=== PATIENT | female | born 1940 | race Caucasian/White ===

== ENCOUNTER 2023-11-09 16:12 | Inpatient (IN) ==
[2023-11-09 17:14] LABS: Appearance Urine Clear (Clear); Bacteria Urine Automated None Seen (None Seen); Bilirubin Urine Negative (Negative); Blood Urine Negative (Negative); Cast Urine Automated 0-2 /lpf (0-2); Color Urine Yellow; Epithelial Cell Urine Auto 0-2 /hpf (0-2); Glucose Urine UA Negative (Negative); Ketones Urine Negative (Negative); Leukocyte Esterase Urine Trace (Negative); Nitrite Urine Negative (Negative); Protein Urine Negative (Negative); RBC Urine Automated 0-2 /hpf (0-2); Specific Gravity Urine 1.014 (1.000-1.030); Urobilinogen Urine Negative (Negative); WBC Urine Automated 0-5 /hpf (0-5); pH Urine 6.5 (4.5-7.5)
[2023-11-09 17:31] LABS: Basophils # (auto) 0.04 K/uL (0.00-0.20); Basophils % (auto) 0.9 %; Eosinophils # (auto) 0.25 K/uL (0.00-0.50); Eosinophils % (auto) 5.8 %; Hematocrit (blood only) 34.9 % (37.0-47.0); Hemoglobin 11.4 g/dl (12.0-16.0); Immature Granulocytes # (auto) 0.01 K/uL (0.01-0.20); Immature Granulocytes % (auto) 0.2 %; Lymphocytes # (auto) 1.19 K/uL (1.20-3.40); Lymphocytes % (auto) 27.7 %; Mean Corpuscular Hemoglobin 28.6 pg (25.0-34.0); Mean Corpuscular Hgb Conc 32.7 g/dL (32.0-36.0); Mean Corpuscular Volume 87.7 fL (80.0-100.0); Mean Platelet Volume 9.5 fL (9.4-12.4); Monocytes # (auto) 0.39 K/uL (0.11-0.59); Monocytes % (auto) 9.1 %; Neutrophils # (auto) 2.42 K/uL (1.40-6.50); Neutrophils % (auto) 56.3 %; Platelet Count 117 K/uL (130-400); RDW Coefficient of Variation 13.5 % (11.5-14.5); RDW Standard Deviation 43.6 fL (36.4-46.3); Red Blood Count 3.98 M/uL (4.20-5.40)
[2023-11-09 17:32] LABS: Amphetamines+Metham, Urine Neg (Neg); Barbiturates, Urine Neg (Neg); Benzodiazepine, Urine Neg (Neg); Cocaine, Urine Neg (Neg); Fentanyl, Urine Neg (Neg); MDMA (Ecstacy), Urine Neg (Neg); Marijuana, Urine Neg (Neg); Methadone, Urine Neg (Neg); Opiate, Urine Neg (Neg); Phencyclidine, Urine Neg (Neg)
[2023-11-09 17:49] LABS: Alanine Aminotransferase 11 U/L (7-52); Albumin Globulin Ratio 1.6 (0.9-2); Albumin Level 3.9 gm/dl (3.4-5.0); Alkaline Phosphatase 98 U/L (34-104); Anion Gap 7 (3-11); Aspartate Aminotransferase 20 U/L (13-39); BUN Creatinine Ratio 21.7 (10-20); Bilirubin,Total 0.8 mg/dl (0.2-1.0); Blood Urea Nitrogen 15 mg/dl (6-23); Calcium 9.1 mg/dl (8.6-10.3); Carbon Dioxide 25 mmol/L (21-32); Chloride 110 mmol/L (98-107); Est GFR (African American) 93.3 ml/min; Est GFR (Non-African American) 80.5 ml/min; Globulin 2.5 gm/dl (2.5-4.0); Glucose 91 mg/dl (70-99(Fasting)); Potassium 3.8 mmol/L (3.5-5.1); Sodium 142 mmol/L (136-145); Total Protein 6.4 gm/dl (6.0-8.3)
[2023-11-09 17:55] LABS: Acetaminophen < 3 ug/ml (10-30); Salicylate < 3.0 mg/dl (3.0-30)
[2023-11-09 18:03] LABS: Thyroid Stimulating Hormone 0.492 uIu/ml (0.300-4.500)
--- NOTE | 2023-11-09 18:40 | CT Scan Report ---
CT head/brain wo con CLINICAL HISTORY: [place] Technique: Contiguous axial CT images of the head were acquired from the base of the skull to the delia josh without intravenous contrast administration. Images were viewed in brain, subdural and bone windo ws. Automated dose lowering techniques and/or adjustment according to patient size were utilized for this exam. Comparison: Comparison is made to CT head 11/07/2023 Findings: Areas of decreased attenuation are present in the periventricular and subcortical white matter bilate rally consistent with small vessel ischemic disease. Generalized cerebral atrophy with commensurate e nlargement of the ventricles, sulci, and cisterns is also present. There is no acute intracranial hem orrhage or evidence of acute territorial infarction. No shift of the midline structures, mass effect, or extra-axial abnormalities are shown. Atherosclerotic calcifications are present in the intracran ial segments of the internal carotid arteries. Imaged portions of the paranasal sinuses and mastoid air cells are clear. The orbits appear normal. There are no acute fractures of the calvaria or scalp swelling. Impression: No acute intracranial hemorrhage, no evidence of acute territorial infarction or other acute intracra nial disease process. ACT 112: Negative or not required by law. Electronically signed by: Trey Corona M.D. 11/09/2023 6:38 PM
[2023-11-09 20:02] LABS: Magnesium 1.9 mg/dl (1.7-2.4)
--- NOTE | 2023-11-09 20:22 | Emergency Department Note ---
History of Present Illness General Chief complaint: Mental Health Evaluation Stated complaint: MENTAL HEALTH ASSESMET w/HI/SI Time Seen by Provider: 11/09/23 17:00 Source: patient and family (Daughter at bedside) History of Present Illness Provider complaint: Mental health evaluation Maximum Pain Intensity: 0 83-year-old female with history of dementia and bipolar disorder presents emergency department for mental health evaluation. She was brought in by her daughter. Daughter reports that the patient recently moved in to live with her 2 months ago. She states that the patient lives at [facility] in memory care and that since being moved to memory care at [facility] she has been having increasing altered mental status, increased agitation and increased crying. She states that this has been off last 2 weeks. She states that the patient has been trying to escape the harmed house trying to run away into the [place]. She states that the patient cannot go back to [facility] and wants her admitted to a different facility and to have more anxiety medications. Reportedly the patient was threatening to kill herself and the staff at [facility] today when she became upset and was crying. Home Medications Medication Instructions Recorded Confirmed Type apixaban 5 mg tablet (Eliquis) 5 mg PO BID 11/09/23 11/09/23 History aspirin 81 mg capsule 81 mg PO DAILY 11/09/23 11/09/23 History atorvastatin 20 mg tablet 20 mg PO DAILY 11/09/23 11/09/23 History calcium carbonate 600 mg-vitamin 1 tab PO DAILY 11/09/23 11/09/23 History D3 5 mcg (200 unit) tablet (Calcium 600 + D(3)) docusate sodium 100 mg capsule 100 mg PO BID 11/09/23 11/09/23 History duloxetine 60 mg capsule,delayed 60 mg PO BID 11/09/23 11/09/23 History release escitalopram oxalate 10 mg tablet 10 mg PO DAILY 11/09/23 11/09/23 History ezetimibe 10 mg tablet 10 mg PO DAILY 11/09/23 11/09/23 History fluticasone 500 mcg-salmeterol 50 1 inh inhalation BID 11/09/23 11/09/23 History mcg/dose blistr powdr for inhalation levothyroxine 88 mcg tablet 88 mcg PO DAILY 11/09/23 11/09/23 History losartan 25 mg tablet (Cozaar) 25 mg PO DAILY 11/09/23 11/09/23 History montelukast 10 mg tablet 10 mg PO DAILY 11/09/23 11/09/23 History olanzapine 5 mg tablet 5 mg PO HS 11/09/23 11/09/23 History pantoprazole 40 mg tablet,delayed 40 mg PO DAILY 11/09/23 11/09/23 History release Allergies Allergy/AdvReac Type Severity Reaction Status Date / Time No Known Allergies Allergy Verified 10/27/23 01:41 Past Med/Surg History Problem List (Updated 11/09/23 @ 20:41 by Adan Macias MD) Dementia (Acute) Dehydration (Acute) Confusion (Acute) Acute UTI (Acute) Medical History No pertinent family history Bipolar disorder HLD (hyperlipidemia) Dementia Surgical History No pertinent past surgical history Social History Smoking Status: Former smoker Preferred Language: Romanian Feels Safe at Home: Yes Physical Exam Vital Signs Vital Signs - 24 hr 11/09/23 16:35 Temperature 36.9 C Temperature Source Oral Pulse Rate 102 H Respiratory Rate 16 Respiratory Effort / Characteristics Non-Labored Blood Pressure 139/69 Blood Pressure Mean 92 Pulse Oximetry 95 Oxygen Delivery Method Room Air Sepsis Recent Fever Within 48 Hours No Sepsis New/Unexplained Change in Mental Status No Sepsis Action Taken by Nursing No Action Required Physical Exam HENT: Exam performed. - Head: Normocephalic and atraumatic. EYES: Conjunctivae and EOM are normal. Right eye exhibits no discharge. Left eye exhibits no discharge. No scleral icterus. NECK: Normal range of motion. Neck supple. No JVD present. CV: Normal rate, regular rhythm, normal heart sounds and intact distal pulses. There is no peripheral edema. Palpable radial pulses bue. PULM/CHEST: Effort normal and breath sounds normal. No respiratory distress. No stridor. no wheezes. no rales. ABD: The abdomen is soft. There is no tenderness. NEURO: Motor and sensation grossly intact. SKIN: Skin is warm and dry. He is not diaphoretic. PSYCH: Patient is confused. Course Course 1700: The patient was evaluated in room A6. A complete history and physical exam was performed 1919: Patient medically cleared. Patient daughter wants the patient placed in different facility. [facility] Medical Decision Making Medical Records Attestation: I reviewed the patient's medical records. External medical records reviewed. This is the patient's third visit in the last 2 weeks for similar symptoms. Last visit was 2 days ago. At that time the patient had a negative workup including negative blood work CT head CT angio head and neck. Laboratory Data Attestation: I reviewed the patient's lab results. 11/09/23 17:10 11/09/23 17:10 Lab Results 11/09/23 11/09/23 11/09/23 Range/Units 16:35 17:10 17:35 WBC 4.30 L (4.8-10.8) K/ul RBC 3.98 L (4.20-5.40) M/uL Hgb 11.4 L (12.0-16.0) g/dl Hct 34.9 L (37.0-47.0) % MCV 87.7 (80.0-100.0) fL MCH 28.6 (25.0-34.0) pg MCHC 32.7 (32.0-36.0) g/dL RDW Std Deviation 43.6 (36.4-46.3) fL RDW Coeff of Alem 13.5 (11.5-14.5) % Plt Count 117 L (130-400) K/uL MPV 9.5 (9.4-12.4) fL Immature Gran % (Auto) 0.2 % Neut % (Auto) 56.3 % Lymph % (Auto) 27.7 % Kane % (Auto) 9.1 % Eos % (Auto) 5.8 % Baso % (Auto) 0.9 % Neut # (Auto) 2.42 (1.40-6.50) K/uL Lymph # (Auto) 1.19 L (1.20-3.40) K/uL Kane # (Auto) 0.39 (0.11-0.59) K/uL Eos # (Auto) 0.25 (0.00-0.50) K/uL Baso # (Auto) 0.04 (0.00-0.20) K/uL Immature Gran # (Auto) 0.01 (0.01-0.20) K/uL Sodium 142 (136-145) mmol/L Potassium 3.8 (3.5-5.1) mmol/L Chloride 110 H (98-107) mmol/L Carbon Dioxide 25 (21-32) mmol/L Anion Gap 7 (3-11) BUN 15 (6-23) mg/dl Creatinine 0.69 (0.6-1.2) mg/dl Est Cr Clr Drug Dosing Not Reportable Est GFR ( Amer) 93.3 ml/min Est GFR (Non-Af Amer) 80.5 ml/min BUN/Creatinine Ratio 21.7 H (10-20) Glucose 91 (70-99(Fasting)) mg/dl Calcium 9.1 (8.6-10.3) mg/dl Magnesium 1.9 (1.7-2.4) mg/dl Total Bilirubin 0.8 (0.2-1.0) mg/dl AST 20 (13-39) U/L ALT 11 (7-52) U/L Alkaline Phosphatase 98 (34-104) U/L Total Protein 6.4 (6.0-8.3) gm/dl Albumin 3.9 (3.4-5.0) gm/dl Globulin 2.5 (2.5-4.0) gm/dl Albumin/Globulin Ratio 1.6 (0.9-2) TSH 0.492 (0.300-4.500) uIu/ml Urine Color Yellow Urine Appearance Clear (Clear) Urine pH 6.5 (4.5-7.5) Ur Specific [place] 1.014 (1.000-1.030) Urine Protein Negative (Negative) Urine Glucose (UA) Negative (Negative) Urine Ketones Negative (Negative) Urine Blood Negative (Negative) Urine Nitrite Negative (Negative) Urine Bilirubin Negative (Negative) Urine Urobilinogen Negative (Negative) Ur Leukocyte Esterase Trace H (Negative) Urine WBC (Auto) 0-5 (0-5) /hpf Urine RBC (Auto) 0-2 (0-2) /hpf U Hyaline Cast (Auto) 0-2 (0-2) /lpf U Epithel Cells (Auto) 0-2 (0-2) /hpf Urine Bacteria (Auto) None Seen (None Seen) Salicylates < 3.0 L (3.0-30) mg/dl Urine Opiates Screen Neg (Neg) Ur Methadone, Qual Neg (Neg) Urine Fentanyl Screen Neg (Neg) Acetaminophen < 3 L (10-30) ug/ml Urine Barbiturates Neg (Neg) Ur Phencyclidine (PCP) Neg (Neg) U Amphetamin/Meth Scrn Neg (Neg) MDMA (Ecstasy) Screen Neg (Neg) U Benzodiazepines Scrn Neg (Neg) Ur Cocaine Metabolite Neg (Neg) U Marijuana (THC) Screen Neg (Neg) Ethyl Alcohol mg/dL < 10.0 (<10.0) mg/dl SARS-CoV-2, RNA, NAAT NEGATIVE (NEGATIVE) Imaging Data Radiologist's Impression: Head CT 11/09/23 17:26 CT head/brain wo con CLINICAL HISTORY: [employer] Technique: Contiguous axial CT images of the head were acquired from the base of the skull to the vertex without intravenous contrast administration. Images were viewed in brain, subdural and bone windows. Automated dose lowering techniques and/or adjustment according to patient size were utilized for this exam. Comparison: Comparison is made to CT head 11/07/2023 Findings: Areas of decreased attenuation are present in the periventricular and subcortical white matter bilaterally consistent with small vessel ischemic disease. Generalized cerebral atrophy with commensurate enlargement of the ventricles, sulci, and cisterns is also present. There is no acute intracranial hemorrhage or evidence of acute territorial infarction. No shift of the midline structures, mass effect, or extra-axial abnormalities are shown. Atherosclerotic calcifications are present in the intracranial segments of the internal carotid arteries. Imaged portions of the paranasal sinuses and mastoid air cells are clear. The orbits appear normal. There are no acute fractures of the calvaria or scalp swelling. Impression: No acute intracranial hemorrhage, no evidence of acute territorial infarction or other acute intracranial disease process. ACT 112: Negative or not required by law. Electronically signed by: Trey Corona M.D. 11/09/2023 6:38 PM [facility] Narrative 1700: The patient was evaluated in room A6. A complete history and physical exam was performed 1920: Patient medically cleared. Patient daughter wants the patient placed in different facility. Patient will be admitted to the [facility] team for placement at different facility. Impression & Plan Dementia Discharge Plan Visit Data Chief Complaint: Mental Health Evaluation Stated Complaint: MENTAL HEALTH ASSESMET w/HI/SI ED Provider: Adan Macias Discharge Problem: Dementia Patient Disposition: Being Evaluated by Hospitalist Forms Stand Alone Forms: [facility], Suicide Prevention Resources Prescriptions Prescriptions: No Action atorvastatin 20 mg Tablet 20 mg PO DAILY olanzapine 5 mg Tablet 5 mg PO HS calcium carbonate-vitamin D3 [Calcium 600 + D(3)] 600 mg-5 mcg (200 unit) Tablet 1 tab PO DAILY levothyroxine 88 mcg Tablet 88 mcg PO DAILY pantoprazole 40 mg Tablet,Delayed Release (Dr/Ec) 40 mg PO DAILY fluticasone propion-salmeterol 500-50 mcg/dose Blister With Device 1 inh INHALATION BID Rx Instructions: 799 & 1999 losartan [Cozaar] 25 mg Tablet 25 mg PO DAILY docusate sodium 100 mg Capsule 100 mg PO BID montelukast 10 mg Tablet 10 mg PO DAILY escitalopram oxalate 10 mg Tablet 10 mg PO DAILY ezetimibe 10 mg Tablet 10 mg PO DAILY duloxetine 60 mg Capsule,Delayed Release(Dr/Ec) 60 mg PO BID Rx Instructions: 799 & 1999 Eliquis 5 mg Tablet 5 mg PO BID Rx Instructions: 799 & 1999 aspirin 81 mg Capsule 81 mg PO DAILY Referrals Referrals: [facility] [place] [Primary Care Provider] - Discharge Problem: Dementia Qualifiers: Dementia type: unspecified type Dementia severity: unspecified severity D ementia behavioral or psychological symptom: with agitation Qualified Code(s): F 03.911 - Unspecified dementia, unspecified severity, with agitation
--- NOTE | 2023-11-09 21:03 | History & Physical Report ---
Date of Service November 09, 2023 Assessment & Plan (1) Agitation: Plan: Episodic agitation History dementia Patient currently calm and mentating well. SSS status post PPM on Eliquis CAD hypertension, slightly elevated hyperlipidemia on statin Rx bronchial asthma, patient without breathing complaints right now hypothyroidism, euthyroid as of today's TSH chronic anemia, hemoglobin at baseline bipolar disorder as per family, patient daughter not sure if current mood medications adequate treatment for patient's bipolar disorder which she feels is contributing to mother's erratic behavior past tobacco abuse OBS F Psych consult as per daughter's request Re: Bipolar disorder Case management Re: placement if [facility] wont be able to accept patient due to erratic behavior DVT prophylaxis. Eliquis DNR as per patient previous wishes. Patient daughter requesting updates from providers. Ms. Emma Mims, contact #[phone]. Text document was generated using Vingle voice recognition software. It may contain grammatical or spelling errors. Kindly contact undersigned for clarification of any documentation item in question. History of Present Illness Chief Complaint: Combative behavior Primary Care Provider: [facility] History obtained from patient, family, and records. Patient is a fair historian. Medical history significant for SSS status post PPM on Eliquis, CAD, hypertension, hyperlipidemia, bronchial asthma, GERD, hypothyroidism, chronic anemia (baseline hemoglobin of 11), bipolar disorder as per family, dementia, past tobacco abuse. Patient moved to [facility] assisted living [facility] from [place] 2 months ago to be close to patient's daughter who lives locally. Son from [place] could not care for patient anymore. Patient seen at [facility] 2 weeks ago for confusion and agitation. Keflex course prescribed for UTI. Patient had confusion and erratic, combative behavior towards staff over the weekend. Tried to escape from facility as per daughter. Assisted living facility staff recommended keeping patient at [facility] memory care unit over the weekend for better supervision. Patient became worse at memory care unit as per daughter. Increased agitation and combativeness. Patient brought to ER for evaluation as per daughter request. Patient has previous bipolar disorder diagnosis and daughter worried that behavior may be coming from untreated illness. 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 Allergies Allergy/AdvReac Type Severity Reaction Status Date / Time No Known Allergies Allergy Verified 10/27/23 01:41 Home Medications Medication Instructions Recorded Confirmed Type apixaban 5 mg tablet (Eliquis) 5 mg PO BID 11/09/23 11/09/23 History aspirin 81 mg capsule 81 mg PO DAILY 11/09/23 11/09/23 History atorvastatin 20 mg tablet 20 mg PO DAILY 11/09/23 11/09/23 History calcium carbonate 600 mg-vitamin 1 tab PO DAILY 11/09/23 11/09/23 History D3 5 mcg (200 unit) tablet (Calcium 600 + D(3)) docusate sodium 100 mg capsule 100 mg PO BID 11/09/23 11/09/23 History duloxetine 60 mg capsule,delayed 60 mg PO BID 11/09/23 11/09/23 History release escitalopram oxalate 10 mg tablet 10 mg PO DAILY 11/09/23 11/09/23 History ezetimibe 10 mg tablet 10 mg PO DAILY 11/09/23 11/09/23 History fluticasone 500 mcg-salmeterol 50 1 inh inhalation BID 11/09/23 11/09/23 History mcg/dose blistr powdr for inhalation levothyroxine 88 mcg tablet 88 mcg PO DAILY 11/09/23 11/09/23 History losartan 25 mg tablet (Cozaar) 25 mg PO DAILY 11/09/23 11/09/23 History montelukast 10 mg tablet 10 mg PO DAILY 11/09/23 11/09/23 History olanzapine 5 mg tablet 5 mg PO HS 11/09/23 11/09/23 History pantoprazole 40 mg tablet,delayed 40 mg PO DAILY 11/09/23 11/09/23 History release Past Med/Surg History Problem List (Updated 11/10/23 @ 07:39 by Jose Juan Sandoval MD) Agitation Dementia (Acute) Dehydration (Acute) Confusion (Acute) Acute UTI (Acute) Medical History No pertinent family history Bipolar disorder HLD (hyperlipidemia) Dementia Surgical History No pertinent past surgical history Social History Smoking Status: Never smoker Hx Alcohol Use: No Hx Substance Use: No Preferred Language: Upper Sorbian Communication Ability: Effective Manager Content Required: No Beliefs That Will Affect Care: None Current Living Situation Comment: At [facility], does not want to return there. Other Information That Helps Us Care for You: No Feels Safe at Home: Yes Safety Concerns: Feels Safe At This Time Assistive Devices: None Review of Systems Review of Systems: As per HPI, all other systems reviewed and negative Physical Exam Physical Exam: GENERAL: Comfortable, obese, pleasant, no respiratory distress SKIN: Normal color, warm HEENT: [place] palpebral conjunctivae, no ptosis, dry buccal mucosa NECK : Supple, no tenderness CHEST : CTA, no tenderness HEART : Irregular, no obvious murmurs ABDOMEN: Some distention, nontender EXTREMITIES : No LE swelling/tenderness, no other conspicuous deformities noted NEUROLOGIC : Coherent, no facial asymmetry, no other gross focality Results & Data Results & Data Vital Signs (Past 12 Hours) Vital Signs Temp Pulse Resp BP Pulse Ox O2 Del Method 11/09/23 16:35 36.9 C 102 H 16 139/69 95 Room Air Laboratory Results Laboratory Results WBC 4.30 K/ul (4.8-10.8) L 11/09/23 17:10 RBC 3.98 M/uL (4.20-5.40) L 11/09/23 17:10 Hgb 11.4 g/dl (12.0-16.0) L 11/09/23 17:10 Hct 34.9 % (37.0-47.0) L 11/09/23 17:10 MCV 87.7 fL (80.0-100.0) 11/09/23 17:10 MCH 28.6 pg (25.0-34.0) 11/09/23 17:10 MCHC 32.7 g/dL (32.0-36.0) 11/09/23 17:10 RDW Std Deviation 43.6 fL (36.4-46.3) 11/09/23 17:10 RDW Coeff of Alem 13.5 % (11.5-14.5) 11/09/23 17:10 Plt Count 117 K/uL (130-400) L 11/09/23 17:10 MPV 9.5 fL (9.4-12.4) 11/09/23 17:10 Immature Gran % (Auto) 0.2 % 11/09/23 17:10 Neut % (Auto) 56.3 % 11/09/23 17:10 Lymph % (Auto) 27.7 % 11/09/23 17:10 Alfalfa % (Auto) 9.1 % 11/09/23 17:10 Eos % (Auto) 5.8 % 11/09/23 17:10 Baso % (Auto) 0.9 % 11/09/23 17:10 Neut # (Auto) 2.42 K/uL (1.40-6.50) 11/09/23 17:10 Lymph # (Auto) 1.19 K/uL (1.20-3.40) L 11/09/23 17:10 Alfalfa # (Auto) 0.39 K/uL (0.11-0.59) 11/09/23 17:10 Eos # (Auto) 0.25 K/uL (0.00-0.50) 11/09/23 17:10 Baso # (Auto) 0.04 K/uL (0.00-0.20) 11/09/23 17:10 Immature Gran # (Auto) 0.01 K/uL (0.01-0.20) 11/09/23 17:10 Sodium 142 mmol/L (136-145) 11/09/23 17:10 Potassium 3.8 mmol/L (3.5-5.1) 11/09/23 17:10 Chloride 110 mmol/L (98-107) H 11/09/23 17:10 Carbon Dioxide 25 mmol/L (21-32) 11/09/23 17:10 Anion Gap 7 (3-11) 11/09/23 17:10 BUN 15 mg/dl (6-23) 11/09/23 17:10 Creatinine 0.69 mg/dl (0.6-1.2) 11/09/23 17:10 Est Cr Clr Drug Dosing Not Reportable 11/09/23 17:10 Est GFR ( Amer) 93.3 ml/min 11/09/23 17:10 Est GFR (Non-Af Amer) 80.5 ml/min 11/09/23 17:10 BUN/Creatinine Ratio 21.7 (10-20) H 11/09/23 17:10 Glucose 91 mg/dl (70-99(Fasting)) 11/09/23 17:10 Calcium 9.1 mg/dl (8.6-10.3) 11/09/23 17:10 Magnesium 1.9 mg/dl (1.7-2.4) 11/09/23 17:10 Total Bilirubin 0.8 mg/dl (0.2-1.0) 11/09/23 17:10 AST 20 U/L (13-39) 11/09/23 17:10 ALT 11 U/L (7-52) 11/09/23 17:10 Alkaline Phosphatase 98 U/L (34-104) 11/09/23 17:10 Total Protein 6.4 gm/dl (6.0-8.3) 11/09/23 17:10 Albumin 3.9 gm/dl (3.4-5.0) 11/09/23 17:10 Globulin 2.5 gm/dl (2.5-4.0) 11/09/23 17:10 Albumin/Globulin Ratio 1.6 (0.9-2) 11/09/23 17:10 TSH 0.492 uIu/ml (0.300-4.500) 11/09/23 17:10 Urine Color Yellow 11/09/23 16:35 Urine Appearance Clear (Clear) 11/09/23 16:35 Urine pH 6.5 (4.5-7.5) 11/09/23 16:35 Ur Specific [place] 1.014 (1.000-1.030) 11/09/23 16:35 Urine Protein Negative (Negative) 11/09/23 16:35 Urine Glucose (UA) Negative (Negative) 11/09/23 16:35 Urine Ketones Negative (Negative) 11/09/23 16:35 Urine Blood Negative (Negative) 11/09/23 16:35 Urine Nitrite Negative (Negative) 11/09/23 16:35 Urine Bilirubin Negative (Negative) 11/09/23 16:35 Urine Urobilinogen Negative (Negative) 11/09/23 16:35 Ur Leukocyte Esterase Trace (Negative) H 11/09/23 16:35 Urine WBC (Auto) 0-5 /hpf (0-5) 11/09/23 16:35 Urine RBC (Auto) 0-2 /hpf (0-2) 11/09/23 16:35 U Hyaline Cast (Auto) 0-2 /lpf (0-2) 11/09/23 16:35 U Epithel Cells (Auto) 0-2 /hpf (0-2) 11/09/23 16:35 Urine Bacteria (Auto) None Seen (None Seen) 11/09/23 16:35 Salicylates < 3.0 mg/dl (3.0-30) L 11/09/23 17:10 Urine Opiates Screen Neg (Neg) 11/09/23 16:35 Ur Methadone, Qual Neg (Neg) 11/09/23 16:35 Urine Fentanyl Screen Neg (Neg) 11/09/23 16:35 Acetaminophen < 3 ug/ml (10-30) L 11/09/23 17:10 Urine Barbiturates Neg (Neg) 11/09/23 16:35 Ur Phencyclidine (PCP) Neg (Neg) 11/09/23 16:35 U Amphetamin/Meth Scrn Neg (Neg) 11/09/23 16:35 MDMA (Ecstasy) Screen Neg (Neg) 11/09/23 16:35 U Benzodiazepines Scrn Neg (Neg) 11/09/23 16:35 Ur Cocaine Metabolite Neg (Neg) 11/09/23 16:35 U Marijuana (THC) Screen Neg (Neg) 11/09/23 16:35 Ethyl Alcohol mg/dL < 10.0 mg/dl (<10.0) 11/09/23 17:10 SARS-CoV-2, RNA, NAAT NEGATIVE (NEGATIVE) 11/09/23 17:[address] 11/09/23 17:26 CT head/brain wo con CLINICAL HISTORY: [facility] Technique: Contiguous axial CT images of the head were acquired from the base of the skull to the vertex without intravenous contrast administration. Images were viewed in brain, subdural and bone windows. Automated dose lowering techniques and/or adjustment according to patient size were utilized for this exam. Comparison: Comparison is made to CT head 11/07/2023 Findings: Areas of decreased attenuation are present in the periventricular and subcortical white matter bilaterally consistent with small vessel ischemic disease. Generalized cerebral atrophy with commensurate enlargement of the ventricles, sulci, and cisterns is also present. There is no acute intracranial hemorrhage or evidence of acute territorial infarction. No shift of the midline structures, mass effect, or extra-axial abnormalities are shown. Atherosclerotic calcifications are present in the intracranial segments of the internal carotid arteries. Imaged portions of the paranasal sinuses and mastoid air cells are clear. The orbits appear normal. There are no acute fractures of the calvaria or scalp swelling. Impression: No acute intracranial hemorrhage, no evidence of acute territorial infarction or other acute intracranial disease process. ACT 112: Negative or not required by law. Electronically signed by: Trey Corona M.D. 11/09/2023 6:38 PM Diagnostic Findings Chest x-ray as per my interpretation minimal congestion
[2023-11-09] MEDS ORDERED: OLANZapine 10 MG/2.1 ML SDV IM PRN (21:09)
[2023-11-09] MEDS: MAGNESIUM SULFATE / D5W 1 GM/100 ML BAG IV ONE (22:48)
[2023-11-09] MEDS: POTASSIUM CHLORIDE CRTAB 20 MEQ TABCR PO STA (23:56)
[2023-11-09] MEDS: MAGNESIUM OXIDE 400 MG TAB PO STA (23:56)
[2023-11-10] MEDS: APIXABAN 5 MG TABLET PO SCH (00:55)
[2023-11-10] MEDS: OLANZapine 5 MG TABLET PO SCH (00:56)
[2023-11-10] MEDS: DULoxetine HCL 60 MG CAP PO SCH (00:56)
[2023-11-10] MEDS: Patient's HEIGHT &/or WEIGHT Needed STA (00:56)
[2023-11-10] MEDS: DOCUSATE SODIUM 100 MG CAP PO SCH (00:58)
[2023-11-10] MEDS: LEVOTHYROXINE SODIUM 88 MCG TABLET PO SCH (05:50)
--- NOTE | 2023-11-10 07:51 | XRay Report ---
XR chest 1V portable CLINICAL HISTORY: ffup, congestion TECHNIQUE: Single frontal radiograph of the chest was obtained. Comparison: Comparison is made to chest radiographs from 11/07/2023 FINDINGS: An implanted pacemaker is seen. Median sternotomy wires are seen. Cardiomegaly is noted. The aortic a rch is calcified. Pulmonary vascular congestion is less conspicuous than in the prior exam. No eviden ce of pleural effusion or pneumothorax. IMPRESSION: Interval mild improvement in pulmonary vascular congestion. ACT 112: Negative or not required by law. Electronically signed by: Trey Corona M.D. 11/10/2023 7:50 AM
[2023-11-10] MEDS: LOSARTAN POTASSIUM 25 MG TAB PO SCH (08:42)
[2023-11-10] MEDS: EZETIMIBE 10 MG TAB PO SCH (08:42)
[2023-11-10] MEDS: PANTOprazole 40 MG TAB PO SCH (08:43)
[2023-11-10] MEDS: ATORVASTATIN 20 MG TAB PO SCH (08:43)
[2023-11-10] MEDS: MONTELUKAST SODIUM 10 MG TABLET PO SCH (08:43)
[2023-11-10] MEDS: ASPIRIN 81 MG ECTAB PO SCH (08:43)
[2023-11-10] MEDS: ESCITALOPRAM OXALATE 10 MG TAB PO SCH (08:43)
[2023-11-10] MEDS: FLUTICASONE/VILANTEROL 200/25MCG 14 PUFFS/INHALER INH SCH (08:44)
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
[2023-11-10] MEDS ORDERED: hydrOXYzine HCl 10 MG TAB PO PRN (15:54)
[2023-11-10] MEDS ORDERED: OLANZAPINE 2.5 MG TAB PO PRN (15:54)
--- NOTE | 2023-11-10 17:13 | Hospitalist Progress Note ---
Date of Service November 10, 2023 Assessment & Plan (1) Agitation: Plan: Episodic agitation History dementia Patient currently calm and mentating well. Psychiatry service consulted Recommendations noted DC citalopram Trial of mirtazapine at bedtime Trial of as needed olanzapine and hydroxyzine bipolar disorder as per family, patient daughter not sure if current mood medications adequate treatment for patient's bipolar disorder which she feels is contributing to mother's erratic behavior Psychiatrist requested to give daughter a call as she had specific questions about medication adjustments PT OT evaluation SSS status post PPM on Eliquis CAD hypertension, slightly elevated -- Continue to monitor hyperlipidemia on statin Rx bronchial asthma -- Bladder exacerbation hypothyroidism -- euthyroid as of today's TSH chronic anemia, hemoglobin at baseline past tobacco abuse GMF Psych consult as per daughter's request Re: Bipolar disorder Case management Re: placement if [facility] wont be able to accept patient due to erratic behavior DVT prophylaxis. Eliquis DNR as per patient previous wishes. Admission and Anticipated Discharge Date Admission Date: November 09, 2023 Subjective Follow-up for behavioral changes, history of mood disorder, etc. Seen with patient's daughter Emma at the bedside Patient is awake and alert, oriented x 3, answering questions appropriately In good spirits, calm and cooperative Remembers she was becoming agitated at the memory care unit and that is why she was transferred over here Daughter clarifies that she [place] but had to stay for 1 night at the memory care unit because of some behavioral changes observed, but ultimate goal is for her to return to the personal-jail section of [place] Patient states she feels fine overall Denies headache, chest pain, cough, abdominal pain, problems with urination or bowel movement No other new symptom Review of Systems Review of Systems: all noted and negative except for above Physical Exam Physical Exam: General- oriented x 3, not in distress, speaks in sentences with no effort or ac cessory muscle use Eyes- anicteric Neck- no JVD Lungs- clear breath sounds bilaterally, no rales/wheezes Heart- normal rate, regular rhythm; no murmurs Abdomen- normal bowel sounds, nondistended, soft, nontender Extremities- no pretibial edema, no calf tenderness Neuro- alert, oriented x 3; no gross focal neurologic deficits Skin- warm & dry Results & Data Results & Data Vital Signs (Past 12 Hours) Vital Signs Temp Pulse Resp BP Pulse Ox O2 Del Method 11/10/23 15:25 36.6 C 81 16 148/79 H 97 Room Air 11/10/23 07:26 36.7 C 84 16 158/93 H 99 Room Air all noted and reviewed including below
[2023-11-10] MEDS: ACETAMINOPHEN 325 MG TAB PO PRN (18:03)
[2023-11-10] MEDS: MIRTAZAPINE TAB 15 MG TAB PO SCH (19:43)
--- NOTE | 2023-11-11 14:32 | Hospitalist Progress Note ---
Date of Service November 11, 2023 Assessment & Plan (1) Agitation: Plan: Episodic agitation History of dementia Patient was sent to the ED from [place] for agitation Patient currently calm and mentating well. Psychiatry service consulted Recommendations noted DC citalopram Trial of mirtazapine at bedtime Trial of as needed olanzapine and hydroxyzine bipolar disorder as per family, patient daughter not sure if current mood medications adequate treatment for patient's bipolar disorder which she feels is contributing to mother's erratic behavior Psychiatrist requested to give daughter a call as she had specific questions about medication adjustments PT OT evaluation SSS status post PPM on Eliquis CAD hypertension, slightly elevated - monitor -- Continue to monitor hyperlipidemia on statin Rx bronchial asthma -- Bladder exacerbation hypothyroidism -- euthyroid as of today's TSH chronic anemia, hemoglobin at baseline past tobacco abuse Please note the above document was generated using voice recognition software. It may contain grammatical, syntax or spelling errors. Any formal questions or concerns about the content, text or information contained within the body of this dictation should be directly addressed to the provider for clarification Admission and Anticipated Discharge Date Admission Date: November 10, 2023 Subjective Patient seen and examined at bedside. Comfortable; not in distress. Denies fever, chills, chest pain, shortness of breath, abdominal pain or urinary symptoms. No significant overnight event Patient is alert oriented x 3 Review of Systems Review of Systems: All systems reviewed & are unremarkable except as noted in Subjective Physical Exam Physical Exam: General- oriented x 3, not in distress, speaks in sentences with no effort or accessory muscle use Eyes- anicteric Neck- no JVD Lungs- clear breath sounds bilaterally, no rales/wheezes Heart- normal rate, regular rhythm; no murmurs Abdomen- normal bowel sounds, nondistended, soft, nontender Extremities- no pretibial edema, no calf tenderness Neuro- alert, oriented x 3; no gross focal neurologic deficits Skin- warm & dry Results & Data Results & Data Vital Signs (Past 12 Hours) Vital Signs Temp Pulse Resp BP Pulse Ox O2 Del Method 11/11/23 07:28 36.8 C 59 L 18 152/78 H 95 Room Air
[2023-11-11 20:11] VITALS: O2SAT 98
[2023-11-12 08:15] VITALS: RESP 18
--- NOTE | 2023-11-12 09:20 | Hospitalist Progress Note ---
Date of Service November 12, 2023 Assessment & Plan (1) Agitation: Plan: Episodic agitation History of dementia Patient was sent to the ED from [place] for agitation Patient currently calm and mentating well. Psychiatry service consulted Recommendations noted DC citalopram Trial of mirtazapine at bedtime Trial of as needed olanzapine and hydroxyzine bipolar disorder as per family, patient daughter not sure if current mood medications adequate treatment for patient's bipolar disorder which she feels is contributing to mother's erratic behavior Psychiatrist requested to give daughter a call as she had specific questions about medication adjustments PT OT evaluation SSS status post PPM on Eliquis CAD hypertension, slightly elevated - monitor -- Continue to monitor hyperlipidemia on statin Rx bronchial asthma -- Bladder exacerbation hypothyroidism -- euthyroid chronic anemia, hemoglobin at baseline past tobacco abuse CODE STATUS DNR/DNI DVT prophylaxis Eliquis Please note the above document was generated using voice recognition software. It may contain grammatical, syntax or spelling errors. Any formal questions or concerns about the content, text or information contained within the body of this dictation should be directly addressed to the provider for clarification Admission and Anticipated Discharge Date Admission Date: November 10, 2023 Subjective Patient seen and examined at bedside. Comfortable; not in distress. Denies fever, chills, chest pain, shortness of breath, abdominal pain or urinary symptoms. No significant overnight events Review of Systems Review of Systems: All systems reviewed & are unremarkable except as noted in Subjective Physical Exam Physical Exam: General- oriented x 3, not in distress, speaks in sentences with no effort or accessory muscle use Eyes- anicteric Neck- no JVD Lungs- clear breath sounds bilaterally, no rales/wheezes Heart- normal rate, regular rhythm; no murmurs Abdomen- normal bowel sounds, nondistended, soft, nontender Extremities- no pretibial edema, no calf tenderness Neuro- alert, oriented x 3; no gross focal neurologic deficits Skin- warm & dry Results & Data Results & Data Vital Signs (Past 12 Hours) Vital Signs Temp Pulse Resp BP Pulse Ox O2 Del Method 11/12/23 08:14 36.5 C 87 18 153/83 H 98 Room Air
--- NOTE | 2023-11-12 15:12 | Discharge Summary ---
Date of Service November 12, 2023 Admission HPI Per Admitting Provider History obtained from patient, family, and records. Patient is a fair historian. Medical history significant for SSS status post PPM on Eliquis, CAD, hypertension, hyperlipidemia, bronchial asthma, GERD, hypothyroidism, chronic anemia (baseline hemoglobin of 11), bipolar disorder as per family, dementia, past tobacco abuse. Patient moved to [facility] from [place] 2 months ago to be close to patient's daughter who lives locally. Son from [place] could not care for patient anymore. Patient seen at [facility] 2 weeks ago for confusion and agitation. Keflex course prescribed for UTI. Patient had confusion and erratic, combative behavior towards staff over the weekend. Tried to escape from facility as per daughter. Assisted living facility staff recommended keeping patient at [facility] memory care unit over the weekend for better supervision. Patient became worse at memory care unit as per daughter. Increased agitation and combativeness. Patient brought to ER for evaluation as per daughter request. Patient has previous bipolar disorder diagnosis and daughter worried that behavior may be coming from untreated illness. Medical History as above Surgical History : PPM, carpal tunnel surgery, orthopedic procedures Family History : Heart disease Personal/Social history : Past tobacco abuse, no EtOH intake, retired bilingual secretary Admission Exam Per Admitting Provider GENERAL: Comfortable, obese, pleasant, no respiratory distress SKIN: Normal color, warm HEENT: [place] palpebral conjunctivae, no ptosis, dry buccal mucosa NECK : Supple, no tenderness CHEST : CTA, no tenderness HEART : Irregular, no obvious murmurs ABDOMEN: Some distention, nontender EXTREMITIES : No LE swelling/tenderness, no other conspicuous deformities noted NEUROLOGIC : Coherent, no facial asymmetry, no other gross focality Principal Diagnosis Dementia with behavioral issues Discharge Exam General- oriented x 3, not in distress, speaks in sentences with no effort or accessory muscle use Eyes- anicteric Neck- no JVD Lungs- clear breath sounds bilaterally, no rales/wheezes Heart- normal rate, regular rhythm; no murmurs Abdomen- normal bowel sounds, nondistended, soft, nontender Extremities- no pretibial edema, no calf tenderness Neuro- alert, oriented x 3; no gross focal neurologic deficits Skin- warm & dry Discharge Data Allergies Allergy/AdvReac Type Severity Reaction Status Date / Time No Known Allergies Allergy Verified 10/27/23 01:41 Consultations 11/09/23 19:20 ED Decision to Admit Stat 11/09/23 23:23 Consult Psychiatry Routine Ordered Studies 11/09/23 17:26 CT head/brain wo con Stat Hospital Course (1) Agitation: Dementia with behavioral issues Patient was sent to the ED from [facility] for agitation Psychiatry was consulted for comanagement. Recommended to discontinue escitalopram. They recommended patient to be started on hydroxyzine 3 times daily for anxiety, mirtazapine 7.5 mg at night, Zyprexa as needed for agitation. The likely cause for the agitation was thought secondary to dementia with beh avioral issues. Patient mentation was at baseline at the time of the discharge. She was alert oriented x 3; not agitated. Patient denied visual or auditory hallucination at the time of discharge. She was discharged back to her personal halfway. Please note the above document was generated using voice recognition software. It may contain grammatical, syntax or spelling errors. Any formal questions or concerns about the content, text or information contained within the body of this dictation should be directly addressed to the provider for clarification Total Time Total Time Spent Total Time Spent (In Minutes): 45 Total Time Includes: Examination of the Patient, Discharge Planning, Medication Reconciliation, Communication With Other Providers and Other Discharge Plan Discharge Items Patient Disposition: Transfer Care Home Fac Reason For Visit: AMS, LABILE MOOD, AGITATION Discharge Diagnosis: Dementia with behavioral disturbances Activity: Resume your previous activity Non-emergency contact: Primary Care Provider Call non-emergency contact if: you have any medication questions and your symptoms worsen Follow-up/Referrals: [facility] [Primary Care Provider] - Diet: Regular Addtl Attending Provider Instructions: You were admitted to the hospital due to agitation. Psychiatrist evaluated you during the hospitalization. They recommend following medication changes; Stop taking escitalopram Take mirtazapine 15 mg at night. Take hydroxyzine 10 mg as needed for anxiety Take Zyprexa 2.5 twice daily as needed for agitation An appointment with your primary care doctor will be made for you Pending Studies at Discharge: No Stand-Alone Forms: My [facility] Skilled Items Lines: None Urinary Catheter: No Medications and DC Order Prescriptions: New hydroxyzine HCl 10 mg tablet 10 mg PO Q8H PRN (Reason: itching) 3 Days Qty: 10 0RF mirtazapine 15 mg tablet 15 mg PO HS 3 Days Qty: 3 0RF olanzapine [Zyprexa] 2.5 mg tablet 2.5 mg PO BID PRN (Reason: agitation) Qty: 3 0RF Continued atorvastatin 20 mg Tablet 20 mg PO DAILY olanzapine 5 mg Tablet 5 mg PO HS calcium carbonate-vitamin D3 [Calcium 600 + D(3)] 600 mg-5 mcg (200 unit) Tablet 1 tab PO DAILY levothyroxine 88 mcg Tablet 88 mcg PO DAILY pantoprazole 40 mg Tablet,Delayed Release (Dr/Ec) 40 mg PO DAILY fluticasone propion-salmeterol 500-50 mcg/dose Blister With Device 1 inh INHALATION BID Rx Instructions: 799 & 1999 losartan [Cozaar] 25 mg Tablet 25 mg PO DAILY docusate sodium 100 mg Capsule 100 mg PO BID montelukast 10 mg Tablet 10 mg PO DAILY ezetimibe 10 mg Tablet 10 mg PO DAILY duloxetine 60 mg Capsule,Delayed Release(Dr/Ec) 60 mg PO BID Rx Instructions: 799 & 1999 Eliquis 5 mg Tablet 5 mg PO BID Rx Instructions: 799 & 1999 aspirin 81 mg Capsule 81 mg PO DAILY Discontinued escitalopram oxalate 10 mg Tablet 10 mg PO DAILY Discharge Orders: Discharge Order (Routine); Ordered 11/12/23 Ordered By: Augustine Velazquez/Other Patient Handouts: Sleep and Women: Life Stages, Dehydration, ED Altered LOC, Overview of Sleep Problems Admission Data Admit Date/Time: 11/10/23 17:08 Attending Provider: Augustine Campbell Admit Provider: Reggie Webb Primary Care Provider: [facility] Other Providers: Jose Juan Sandoval; Judith Spencer; Barber Jones; Lucio Bran Jr; Janet Garcia; Lacy Lau; Marky Rebolledo Other Interventions: Discharge Summary Assessment (RN) Last Done: 11/12/23 13:39
[2023-11-12 15:34] VITALS: BP 119/69; PULSE 103; TEMP 97.2
== END 2023-11-12 17:15 | DRG 884 ==
LOC: ED 16:12 → EDINP 16:12 → 3N 23:23 → SUATTDRO 11-10 17:08